=== PATIENT | female | born 1965 | race American Indian/Alaskan Native ===

== ENCOUNTER 2018-02-15 13:39 | Emergency (ER) | payer OTHER ==
[2018-02-15 13:56] VITALS: BP 165/77
--- NOTE | 2018-02-15 16:08 | Emergency Department Report ---
Minor Respiratory - HPI Chief Complaint: Upper Respiratory Infection Stated Complaint: FLU SYMPTOMS Time Seen by Provider: 02/15/18 14:56 Duration: patient has been feeling ill for approximately 2 weeks Pain Location: Chest Severity: moderate Minor Respiratory: Yes Able to Tolerate Fluids, Yes Cough (patient has a wet cough productive of yellow sputum for the past 2 weeks. Patient was on antibiotic and steroid pack for the first week of her illness which did not help symptoms.), No Rhinorrhea, No Sore Throat, No Ear Pain, No Sick Contacts, No Hemoptysis, No Chest Pain, No Shortness of Breath, No Fever ED Review of Systems ROS: Stated complaint: FLU SYMPTOMS Other details as noted in HPI Comment: All other systems reviewed and negative ED Past Medical Hx - Past Medical History Additional medical history: Bronchitis, Sarcodosis - Surgical History Past Surgical History?: No - Social History Smoking Status: Current Every Day Smoker Substance Use Type: None - Medications Home Medications: Home Medications Medication Instructions Recorded Confirmed Last Taken Type ALBUTEROL NEB's [Proventil 0.083% 5 mg IH TID PRN #30 neb 02/15/18 Unknown Rx NEBS] Benzonatate [Tessalon Perles] 100 mg PO Q8HR #10 capsule 02/15/18 Unknown Rx Budesonide [Pulmicort] 0.5 mg IH BID #20 ampul.neb 02/15/18 Unknown Rx Minor Respiratory Exam - Exam General: Vital signs noted. No distress. Alert and acting appropriately. HEENT: Yes Moist Mucous Membranes, No Pharyngeal Erythema, No Pharyngeal Exudates, No Rhinorrhea, No Conjuctival Injection, No Frontal Tenderness, No Maxillary Tenderness Ear: Neither TM Bulge, Neither TM Erythema, Neither EAC Pain, Neither EAC Discharge Neck: Yes Supple, No Adenopathy Lungs: Yes Good Air Exchange, No Wheezes, No Ronchi, No Stridor, No Cough, No Labored Respirations, No Retractions, No Use of Accessory Muscles, No Other Abnormal Lung Sounds Heart: Yes Regular, No Murmur Abdomen: Yes Normal Bowel Sounds, No Tenderness, No Peritoneal Signs Skin: No Rash, No Edema Neurologic: Alert and oriented, no deficits. Musculoskeletal: Unremarkable. ED Course Vital Signs 02/15/18 13:53 Temperature 97.7 F Pulse Rate 71 Respiratory 18 Rate Blood Pressure 165/77 O2 Sat by Pulse 98 Oximetry ED Medical Decision Making - Radiology Data interpreted by me: Patient with hyperinflation of the lungs with no infiltrate - Medical Decision Making Patient is a 52-year-old [place] female who has a heavy smoking history who is presenting with chronic wet cough for the past 2 weeks. Patient states she is taking steroids as well as oral antibiotics with no relief. Review of the patient's chest x-ray patient has no air trapping consistent with COPD. Patient likely has chronic bronchitis secondary to smoking. Patient does have a nebulizer machine but does not have any medications. She states that she took several albuterol that were approximately 5-7 years old and the beginning stages of this illness but ran out of those. Patient will have a new prescription for albuterol given as well as Pulmicort. 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 Critical care attestation.: If time is entered above; I have spent that time in minutes in the direct care of this critically ill patient, excluding procedure time. ED Disposition Clinical Impression: COPD (chronic obstructive pulmonary disease) Qualifiers: COPD type: chronic bronchitis Chronic bronchitis type: mixed simple and mucopurulent Qualified Code(s): J41.8 - Mixed simple and mucopurulent chronic bronchitis Disposition: DC-01 TO HOME OR SELFCARE Is pt being admited?: No Does the pt Need Aspirin: No Condition: Stable Instructions: Chronic Obstructive Pulmonary Disease (ED) Prescriptions: ALBUTEROL NEB's [Proventil 0.083% NEBS] 5 mg IH TID PRN #30 neb PRN Reason: Wheezing Budesonide [Pulmicort] 0.5 mg IH BID #20 ampul.neb Referrals: HU FARLEY MD [Staff Physician] - 3-5 Days Time of Disposition: 16:09
--- NOTE | 2018-02-15 17:12 | XRay Report ---
FINAL REPORT EXAM: XR CHEST ROUTINE 2V HISTORY: cough x 2 weeks TECHNIQUE: Frontal and lateral chest radiographs. PRIORS: None. FINDINGS: The cardiomediastinal silhouette is normal. No focal consolidation. No pleural effusion. No pneumothorax. No acute osseous abnormality. IMPRESSION: No acute cardiopulmonary process.
== END 2018-02-15 16:16 | disposition home or self-care (01) ==
LOC: ED 13:39
DX: J44.9 Chronic obstructive pulmonary disease, unspecified (principal); F17.200 Nicotine dependence, unspecified, uncomplicated
CPT/HCPCS: 71046